=== PATIENT | female | born 1950 ===

== ENCOUNTER 2021-06-10 15:38 | Emergency (ER) | payer OTHER ==
[~2021-06-10] VITALS: Ht 160 cm; Wt 72.6 kg
[2021-06-10] MEDS ORDERED: KETOROLAC TROMETH 60MG/2ML VIAL IM ONE (18:45)
[2021-06-11 04:41] VITALS: BP 131/81
== END 2021-06-11 05:50 | disposition home or self-care (01) ==
LOC: ER 15:38
DX: R07.81 Pleurodynia (principal); R51.9 Headache, unspecified; R06.02 Shortness of breath
CPT/HCPCS: 71045; 96372; 99283; J1885